=== PATIENT | male | born 1960 | race Caucasian/White ===

== ENCOUNTER → 2018-01-25 01:45 | Outpatient (CLI) | payer MEDICAID, SELFPAY ==
[2018-01-25 13:07] LABS: Abs Immature Grans 0.02 k/cumm (0.0-0.09); Absolute Basophil Count 0.02 k/cumm (0.0-0.2); Absolute Eosinophil Count 0.13 k/cumm (0.0-0.7); Absolute Lymphocyte Count 2.23 k/cumm (1.2-3.4); Absolute Neutrophil Count 8.04 k/cumm (1.2-6.7); Basophils % 0.2; Eosinophils % 1.1; HCT 39.4 % (40.0-50.0); HGB 13.1 g/dL (13.5-17.5); Immature Grans % 0.2; Lymphocytes % 19.5; Mean Corp. HGB Concentration 33.2 g/dL (32.0-36.0); Mean Corpuscular Hemoglobin 33.8 pg (27.0-33.0); Mean Corpuscular Volume 101.5 fL (80-95); Mean Platelet Volume 10.2 fL (8.0-11.0); Monocytes % 8.7; Neutrophils % 70.3; Platelet Count 184 x1000/uL (130-400); RBC 3.88 m/cumm (4.50-6.00); RBC Distribution Width 13.7 % (11.8-14.1); White Blood Cell Count 11.44 k/cumm (4.4-10.8)
[2018-01-25 13:53] LABS: ALT 25 U/L (12-78); AST 17 U/L (15-37); Albumin 3.8 g/dL (3.4-5.0); Alkaline Phosphatase 79 U/L (46-116); Anion Gap 9.5 mmol/L (3-11); BUN 16 mg/dL (7-18); Bilirubin, Total 0.7 mg/dL (0.2-1.0); CO2 27.5 mmol/L (21.0-32.0); CREATININE 0.83 mg/dL (0.70-1.30); Calcium 8.6 mg/dL (8.5-10.1); Chloride 102 mmol/L (98-107); Cholesterol 163 mg/dL (50-200); Glucose 84 mg/dL (70-100); HDL Cholesterol 53 mg/dL (40-60); LDL CHOLESTEROL 102 mg/dL (<100); Potassium 4.2 mmol/L (3.5-5.1); Sodium 139 mmol/L (136-145); Total Protein 7.2 g/dL (6.4-8.2); Triglyceride 29 mg/dL (30-150)
== END ==
PROVIDERS: PCP Family Medicine; Visit Provider Family Medicine
DX: J44.9 Chronic obstructive pulmonary disease, unspecified (principal); Z13.220 Encounter for screening for lipoid disorders
CPT/HCPCS: 36415; 80053; 80061; 83721; 85025

== ENCOUNTER 2018-05-30 14:45 | Outpatient (CLI) | payer MEDICAID, SELFPAY ==
[2018-05-30 15:19] LABS: Absolute Basophil Count 0.04 k/cumm (0.0-0.2); Absolute Eosinophil Count 0.24 k/cumm (0.0-0.7); Absolute Lymphocyte Count 2.18 k/cumm (1.2-3.4); Absolute Monocyte Count 1.13 k/cumm (0.11-0.7); Basophils % 0.3; Eosinophils % 1.9; HGB 13.4 g/dL (13.5-17.5); Immature Grans % 0.8; Lymphocytes % 17.3; Mean Corp. HGB Concentration 32.7 g/dL (32.0-36.0); Mean Corpuscular Hemoglobin 32.3 pg (27.0-33.0); Mean Corpuscular Volume 98.8 fL (80-95); Mean Platelet Volume 9.4 fL (8.0-11.0); Neutrophils % 70.7; Platelet Count 276 x1000/uL (130-400); RBC 4.15 m/cumm (4.50-6.00); RBC Distribution Width 13.9 % (11.8-14.1); White Blood Cell Count 12.59 k/cumm (4.4-10.8)
[2018-05-30 16:40] LABS: Anion Gap 11.8 mmol/L (3-11); BUN 12 mg/dL (7-18); CO2 29.2 mmol/L (21.0-32.0); CREATININE 0.91 mg/dL (0.70-1.30); Calcium 9.2 mg/dL (8.5-10.1); Chloride 99 mmol/L (98-107); Glucose 86 mg/dL (70-100); Sodium 140 mmol/L (136-145)
[2018-05-30 16:45] LABS: D-Dimer 554 ng/mlFEU (<500)
== END 2018-05-30 15:05 ==
PROVIDERS: PCP Family Medicine; Visit Provider Family Medicine
DX: R06.00 Dyspnea, unspecified (principal)
CPT/HCPCS: 36415; 80048; 85025; 85379

== ENCOUNTER 2018-10-30 07:00 | Outpatient (CLI) | payer MEDICAID, SELFPAY ==
--- NOTE | 2018-10-30 10:23 | DI.RAD_ITS ---
SYMPTOM/DIAGNOSIS: ABD PAIN, ABD MASS, DYSPHAGIA, UNINTENTIONAL WT LOSS, R10.9,R19.00,R13.10 PA AND LATERAL CHEST: The lungs appear hyperinflated but clear. Cardiac size is within normal limits. No pleural effusion is seen. CONCLUSION: No evidence of acute disease.
[2018-10-30 11:02] LABS: HCT 26.9 % (40.0-50.0); HGB 8.5 g/dL (13.5-17.5); Mean Corp. HGB Concentration 31.6 g/dL (32.0-36.0); Mean Corpuscular Hemoglobin 29.4 pg (27.0-33.0); Mean Corpuscular Volume 93.1 fL (80-95); Mean Platelet Volume 9.8 fL (8.0-11.0); Platelet Count 404 x1000/uL (130-400); RBC 2.89 m/cumm (4.50-6.00); RBC Distribution Width 16.3 % (11.8-14.1); White Blood Cell Count 17.55 k/cumm (4.4-10.8)
[2018-10-30 11:03] LABS: Bilirubin Small (Negative); Blood Negative (Negative); Clarity Clear; Glucose Negative (Negative); Ketones Negative (Negative); Leukocyte Esterase Negative (Negative); Nitrite Negative (Negative)
[2018-10-30 11:21] LABS: Absolute Monocyte Count 1.93 k/cumm (0.11-0.7); Absolute Neutrophil Count 14.57 k/cumm (1.2-6.7); Anisocytosis 1+; Diff Comment Manual Differential; Hypochromasia 1+; Polychromasia Present
[2018-10-30 11:22] LABS: Poikilocytes 1+
[2018-10-30 11:35] LABS: ALT 56 U/L (12-78); AST 153 U/L (15-37); Albumin 2.6 g/dL (3.4-5.0); Anion Gap 7.8 mmol/L (3-11); BUN 14 mg/dL (7-18); Bilirubin, Total 0.8 mg/dL (0.2-1.0); CO2 28.2 mmol/L (21.0-32.0); CREATININE 0.81 mg/dL (0.70-1.30); Calcium 8.7 mg/dL (8.5-10.1); Chloride 99 mmol/L (98-107); Glucose 116 mg/dL (70-100); Potassium 4.1 mmol/L (3.5-5.1); Sodium 135 mmol/L (136-145); Total Protein 6.8 g/dL (6.4-8.2)
[2018-10-30 11:40] LABS: Alkaline Phosphatase 1069 U/L (46-116)
[2018-10-30 11:46] LABS: Bacteria Moderate HPF (Negative); Crystals Negative HPF (Negative); Epithelial Cells Negative HPF (Negative); Other Cells Rare Renal (Negative); RBC Negative (0-2)
[2018-10-30 11:47] LABS: Casts 0-2 Hyaline LPF (Negative); Mucus Heavy (Negative)
[2018-10-30 11:48] LABS: C & S Indicated? No
== END 2018-10-30 07:20 ==
PROVIDERS: PCP Family Medicine; Visit Provider Family Medicine
DX: J44.9 Chronic obstructive pulmonary disease, unspecified (principal); R10.9 Unspecified abdominal pain; R13.10 Dysphagia, unspecified; R19.00 Intra-abdominal and pelvic swelling, mass and lump, unspecified site; R63.4 Abnormal weight loss
CPT/HCPCS: 80053; 71046; 81003; 81015; 82565; 85025

== ENCOUNTER 2018-11-01 09:25 | Outpatient (CLI) | payer MEDICAID, SELFPAY ==
--- NOTE | 2018-11-01 09:28 | DI.CT_ITS ---
SYMPTOMS/DIAGNOSIS: ABD PAIN, UNINTENTIONAL WEIGHT LOSS, R10.9, R19.00 CT OF THE ABDOMEN AND PELVIS: There are no prior comparison exams. Images were performed from the lung bases through the ischial tuberosities after IV and oral contrast. The patient noted difficulty swallowing the barium. Barium is seen in the stomach through the distal small bowel. There is a mass at the distal esophagus and fundus of the stomach measuring approximately 6 x 4 x 7 cm. There is severe narrowing of the distal esophagus. There is no small bowel or colonic dilatation. There are multiple large liver metastases, enlarging the liver extending across the midline, deviating the stomach as well as extending inferiorly into the pelvis. There is ascites seen around the liver as well as in the pelvis. No adenopathy is identified. The lung bases are clear. The heart size is normal. The spleen, adrenals and pancreas are unremarkable. There is a nonobstructing stone in the mid left kidney and a small left renal cyst. The right kidney is unremarkable. The prostate is normal in size and shows some calcification. The bladder is unremarkable. No suspicious bony abnormalities are identified. IMPRESSION: Mass of the distal esophagus and/or stomach, measuring approximately 6 x 4 x 7 cm. Enlarged liver with multipe metastases and ascites are present.
[2018-11-01] MEDS: Omnipaque 350 MG/ML 50 ML BTL IV (09:44)
[2018-11-01] MEDS: Omnipaque 350 MG/ML 100 ML BTL IJ (11:28)
== END 2018-11-01 09:45 ==
PROVIDERS: PCP Family Medicine; Visit Provider Family Medicine
DX: R10.9 Unspecified abdominal pain (principal); R19.00 Intra-abdominal and pelvic swelling, mass and lump, unspecified site; R63.4 Abnormal weight loss; D37.8 Neoplasm of uncertain behavior of other specified digestive organs; C78.7 Secondary malignant neoplasm of liver and intrahepatic bile duct; R18.8 Other ascites
CPT/HCPCS: 74177; J3490; Q9967

== ENCOUNTER 2018-11-11 10:00 | Inpatient (IN) | payer OTHER, SELFPAY ==
[2018-11-11] VITALS (8 sets, daily range): BP systolic 78–208; BP diastolic 45–172; PULSE 56–120; RESP 25–33; TEMP 30.4–36; O2SAT 87–94
--- NOTE | 2018-11-11 10:06 | DI.COMBO_ITS ---
SYMPTOM/DIAGNOSIS: ALTERED MENTAL STATUS, H/O CA NONCONTRAST HEAD CT: No acute intracranial hemorrhage, infarct, midline shift or mass effect is identified. The ventricles are intact. The basilar cisterns are patent. The visualized paranasal sinuses are clear. The mastoid air cells are well pneumatized. IMPRESSION: No acute intracranial process. PA AND LATERAL CHEST: Comparison is made with 10/30/18. Heart size and pulmonary vasculature are within normal limits. No infiltrates, effusions or pneumothoraces are identified. Degenerative changes are seen in the spine. There are again seen post surgical changes of resection of the distal right clavicle. Calcifications are again seen in the region of the right axilla. These are unchanged. IMPRESSION: No acute pulmonary process.
[2018-11-11] MEDS: Normal Saline 1,000 ML 1000 ML IV ×2 (10:19→12:38)
--- NOTE | 2018-11-11 10:26 | ED.GENADUL_ITS ---
Discharge Plan Discharge Details Chief Complaint: AMS/LOC Clinical Impression: Admission for hospice care, Liver metastases, Adult failure to thrive, Rhabdomyolysis, Admission for end of life care Admit Date/Time: 11/11/18 11:57 Admit Provider: Mimi Gardner Attending Provider: Mimi Gardner Primary Care Provider: Cuauhtemoc Kraus ED Provider: Román Erazo Medical Decision Making Is a 58-year-old male who is currently on hospice who has known cancer with metastases or gnosis. He was found poorly responsive by his friends, last known well was greater than 24 hours ago. On initial EMS arrival his blood glucose level was 32, he was given a bolus of D10. 250 mL total. Upon arrival to the ER his sugar level was 110. Initial exam demonstrated a GCS of 11, gag reflex intact. CODE STATUS is DNR/DNI. Physical exam demonstrates notably dry mucous membranes. A thin cachectic appearing male, no signs of significant trauma. Differential included severe pathology secondary to malignancy, rhabdomyolysis, dehydration, versus multiple other metabolic derangements from his cancer. Rehydration was started, laboratory work-up has returned and demonstrates notable white count of 23, hemoglobin of 5 which is significantly decreased from normal. 7% bands, elevated INR of 2.3 in spite of no anticoagulants. Notable acidosis at 7.11 with a PCO2 of 33, suggesting a metabolic acidosis. Bicarb is 12, potassium is 5.7, creatinine is 2.46, CPK is 3700, multiple abnormalities. The patient did show some mental status improvement with hydration. We did contact Dr. Sloan for further direction in regards to the patient's wishes as he was unable to clearly articulate those at this time. Dr. Sloan made it clear that he is on hospice, and states that the patient's request was to remain comfortable during this period. She has asked that we hold any ad ditional work-up, start a morphine drip at 20 mg/h with 10 mg boluses every 15 minutes as needed. She would then be assuming care. She has asked that we place bridging orders to get him to the floor to make sure that he has kept comfortable. Patient will be transferred to the care of Dr. Gutiérrez. I have extensively reviewed the treatment plan with the patient. I have addressed all patient concerns at this time. I have also discussed the plan with the admitting physician and they agree with the current assessment and plan and have agreed to assume responsibility for the patient. All parties demonstrate verbal understanding and agreement with our assessment and plan at this time. EKG 10: 10 Rate 65, QTc 472, QRS 102, machine is read as atrial flutter or fibrillation however my interpretation is sinus rhythm with notable artifact. Lead II shows clear P waves throughout. No significant ST elevations or depressions, severe artifact throughout secondary to the patient's current mental status. FINDINGS: Lungs: Emphysematous change and mild interstitial prominence. Pleural space: No pleural effusion. Heart/Mediastinum: Normal configuration of the heart. Bones/joints: Surgical resection of the distal right clavicle. Degenerative change. Other findings: Calcified right axillary lymph nodes. When correlating with the previous study, no significant interval changes are present. IMPRESSION: Stable appearance of the chest, not significantly changed from 10/30/2018 . Dictated and Authenticated by: Ad Mcmanus MD. FINDINGS: Brain: Mild symmetric prominence of the cortical sulci relative to the stated patient age. Normal graywhite matter differentiation. No acute cortical infarct, mass effect, or intracranial hemorrhage. Ventricles: Normal configuration of the ventricles. Bones/joints: No acute calvarial pathology. Sinuses: No sinus fluid. Mastoid air cells: No mastoid effusion. Soft tissues: Unremarkable soft tissues. Vasculature: Vascular calcification. IMPRESSION: No acute intracranial pathology HPI General Date/Time Provider Initiated Documentation: 11/11/18 10:05 . HPI Narrative: This is a 58-year-old male with a past medical history of cancer and metastases, who is currently on hospice presents today by EMS for altered mental status. Patient is a poor historian. Per EMS, a friend went to check on the patient, it had been a few days since he had last been seen. On their arrival they found him on the floor,obtunded and altered. Accu-Chek was 32, he was given a 250 cc bolus of D10, patient was brought to the ER, fluid was started by EMS. Patient has no complaints secondary to his altered mental status. He is moaning, and seems to be moving all 4 extremities, no other modifying factors. History is limited by current physical state. Review of records do indicate that he is seeing Dr. Gutiérrez and has been put on hospice by her. Her records it does appear that he also does have a history of orthotics abuse however this has been transitioned during his current hospice state. He does have fentanyl patches at home. Related Data Home Medications Medication Instructions Recorded Confirmed tiotropium bromide [Spiriva with 18 mcg INHALATION DAILY #30 tab-cap 07/15/18 11/04/18 HandiHaler] budesonide-formoterol HFA 160 2 puff INHALATION BID 30 Days #1 07/19/18 11/04/18 mcg-4.5 mcg/actuation aerosol inhaler inhaler albuterol sulfate HFA 90 2 puff INHALATION q 4h PRN #8.5 gm 07/26/18 11/04/18 mcg/actuation aerosol inhaler lorazepam 1 mg tablet 1 mg PO Q4H PRN #6 tab MDD 4 11/07/18 11/07/18 methadone 5 mg tablet 5 mg PO Q6H #28 tab MDD 4 11/07/18 11/07/18 morphine concentrate 100 mg/5 mL See Rx Instructions SL Q1H PRN PRN 11/07/18 11/07/18 (20 mg/mL) oral solution #30 ml MDD 15ml oxycodone 10 mg tablet 10 mg PO TID PRN #21 tab MDD 3 11/07/18 11/07/18 methadone 5 mg/5 mL oral solution 5 mg PO Q6H #500 ml MDD 20 11/08/18 11/08/18 fentanyl 25 mcg/hr transdermal 1 patch TD Q72H #5 each MDD 50 mcg 11/09/18 patch Previous Rx's Medication Instructions Recorded tiotropium bromide [Spiriva with 18 mcg INHALATION DAILY #30 tab-cap 07/15/18 HandiHaler] budesonide-formoterol HFA 160 2 puff INHALATION BID 30 Days #1 07/19/18 mcg-4.5 mcg/actuation aerosol inhaler inhaler albuterol sulfate HFA 90 2 puff INHALATION q 4h PRN #8.5 gm 07/26/18 mcg/actuation aerosol inhaler lorazepam 1 mg tablet 1 mg PO Q4H PRN #6 tab MDD 4 11/07/18 methadone 5 mg tablet 5 mg PO Q6H #28 tab MDD 4 11/07/18 morphine concentrate 100 mg/5 mL See Rx Instructions SL Q1H PRN PRN 11/07/18 (20 mg/mL) oral solution #30 ml MDD 15ml oxycodone 10 mg tablet 10 mg PO TID PRN #21 tab MDD 3 11/07/18 methadone 5 mg/5 mL oral solution 5 mg PO Q6H #500 ml MDD 20 11/08/18 fentanyl 25 mcg/hr transdermal 1 patch TD Q72H #5 each MDD 50 mcg 11/09/18 patch Allergies Allergy/AdvReac Type Severity Reaction Status Date / Time No Known Allergies Allergy Verified 10/28/18 16:33 General Stated Complaint: AMS/LOC LATESHA: 2 Review of Systems Review of Systems All systems reviewed & are unremarkable except as noted in HPI and below PFSH Medical History Unintentional weight loss of more than 10% body weight within 6 months (Acute) Liver metastases (Acute) Gastric mass (Acute) COPD (chronic obstructive pulmonary disease) (Chronic) Family History Sister Heart disease Social History Smoking/Tobacco Use Status: Current every day Tobacco Type: cigarettes Quit status: not considering quitting Counseling given: other Substance use type: former substance user Date of last use: 11/05 - [facility] buprenophrine Counseling given: No Counseling provided: other Details: on [facility] Caregiver/Support person: Yes (sister) Household members: none Housing: house Number of Children: 0 Communication Needs: None current occupation: disabled Pets and animals: Yes Pets and animals: cat(s) What is your relationship status?: don't know Panel score (0-1 are the most socially isolated patients): 0 What type of physical activity do you participate in: none Mila/Buddhism: Church Special mila needs: No Agree to transfusion: No Additional Social history: pt unable to answer; per EMS he lives alone and friend checks on him Exam Narrative Exam Narrative: 1.Const: Thin, pale, cachectic with notable jaundice of the eyes 2.Eyes: PERRL, no conjunctival injection, and symmetrical lids. No pinpoint pupils 3.ENT: Atraumatic external nose and ears. Extremely dry MM. Neck: Symmetric, trachea midline, No thyromegaly. 4.CVS: +S1/S2, No murmurs or gallops. Peripheral pulses 2+ and equal in all extremities. Brisk capillary refill in all extremities. 5.RESP: Notably tachypneic with labored respiratory effort clear to auscultation bilaterally. No wheezes rales or rhonchi 6.GI: Soft, Nontender/Nondistended, No hepatosplenomegaly. No guarding or rebound. 7.MSK: Normocephalic/Atraumatic, Extremities w/o deformity or ttp No cyanosis or clubbing, Normal movement of all extremities 8.Skin: Warm, Dry. No rashes or lesions. 9.Neuro: GCS of E3 M2 V6, 11 total. 10.Psych: Notably altered Course Vital Signs Temperature 30.4 C L 11/11/18 10:06 Pulse 64 11/11/18 10:06 Respiratory Rate 32 H 11/11/18 10:06 Blood Pressure 139/81 11/11/18 10:06 Pulse Oximetry 87 L 11/11/18 10:06 Temperature 30.4 C L 11/11/18 10:06 Temperature Source Rectal 11/11/18 10:06 Pulse 64 11/11/18 10:06 Respiratory Rate 32 H 11/11/18 10:06 Respiratory Effort 11/11/18 10:15 Blood Pressure 139/81 11/11/18 10:06 Pulse Oximetry 87 L 11/11/18 10:06 Oxygen Delivery Method Room Air 11/11/18 10:06 Oxygen Flow Rate 0 11/11/18 10:06 Lab/Test Results Lab/Test Results: 11/11/18 10:06 Blood Blood Culture - Pending 11/11/18 10:06 Blood Blood Culture - Pending
[2018-11-11 11:00] LABS: HCO3 (Venous) 10 mmol/L (22-28); O2 Sat (Venous) 63 % (70-80); TCO2 (Venous) 11 mmol/L (22-29); pCO2 (Venous) 33 mm/Hg (34-47); pO2 (Venous) 49 mm/Hg (28-44)
[2018-11-11 11:06] LABS: Abs Immature Grans 1.77 k/cumm (0.0-0.09); Mean Corp. HGB Concentration 29.9 g/dL (32.0-36.0); Mean Corpuscular Hemoglobin 31.6 pg (27.0-33.0); Mean Corpuscular Volume 105.7 fL (80-95); Mean Platelet Volume 10.9 fL (8.0-11.0); Platelet Count 228 x1000/uL (130-400); RBC 1.58 m/cumm (4.50-6.00); RBC Distribution Width 23.4 % (11.8-14.1); White Blood Cell Count 23.63 k/cumm (4.4-10.8)
[2018-11-11 11:12] LABS: HCT 16.7 % (40.0-50.0)
[2018-11-11 11:14] LABS: Ammonia 47 umol/L (11-32)
[2018-11-11 11:15] LABS: INR 2.3 (0.9-1.1); PTT Activated 31.6 sec (21.0-31.4); Prothrombin Time 22.9 sec (9.3-11.0)
[2018-11-11 11:16] LABS: pH (Venous) 7.11 (7.32-7.43)
[2018-11-11 11:28] LABS: Albumin 2.2 g/dL (3.4-5.0); Alkaline Phosphatase 598 U/L (46-116); Anion Gap 27.4 mmol/L (3-11); BUN 76 mg/dL (7-18); Bilirubin, Total 3.4 mg/dL (0.2-1.0); CO2 12.6 mmol/L (21.0-32.0); CREATININE 2.46 mg/dL (0.70-1.30); Calcium 8.1 mg/dL (8.5-10.1); Chloride 104 mmol/L (98-107); Estimated GFR 27.35 (mL/min/1.73m2); Glucose 117 mg/dL (70-100); Lipase 335 U/L (73-393); Potassium 5.7 mmol/L (3.5-5.1); Sodium 144 mmol/L (136-145); TSH (W/Ref FT4) 7.28 uIU/mL (0.358-3.74); Total Protein 5.9 g/dL (6.4-8.2); Troponin I 0.04 ng/mL (0.00-0.06)
[2018-11-11 11:34] LABS: Absolute Lymphocyte Count 0.71 k/cumm (1.2-3.4); Absolute Monocyte Count 2.13 k/cumm (0.11-0.7); Absolute Neutrophil Count 19.14 k/cumm (1.2-6.7)
[2018-11-11 11:35] LABS: Absolute Eosinophil Count 0.24 k/cumm (0.0-0.7); Anisocytosis 3+; Basophilic Stippling Present; Diff Comment Manual Differential; Hypochromasia 3+; Macrocytosis 2+; Nucleated RBC 1 /100WBC; Polychromasia Present
[2018-11-11 11:39] LABS: AST 1230 U/L (15-37); Creatine Kinase 3726 U/L (39-308); ETHANOL BLOOD < 3.0 mg/dL (<3)
[2018-11-11 12:37] LABS: FREE T4 0.67 ng/dL (0.76-1.46)
[2018-11-11] MEDS: MORPHine 10 MG/ML VIAL IVP (12:38)
--- NOTE | 2018-11-11 12:44 | DI.VRAD_ITS ---
EXAM: CT Head Without Contrast EXAM DATE/TIME: 11/11/2018 10:08 AM CLINICAL HISTORY: 58 years old, male; Signs and symptoms; Other: Altered, cancer HX TECHNIQUE: Imaging protocol: Axial computed tomography images of the head without contrast. Coronal and sagittal reformatted images were created and reviewed. Radiation optimization: All CT scans at this facility use at least one of these dose optimization techniques: automated exposure control; mA and/or kV adjustment per patient size (includes targeted exams where dose is matched to clinical indication); or iterative reconstruction. COMPARISON: No relevant prior studies available. FINDINGS: Brain: Mild symmetric prominence of the cortical sulci relative to the stated patient age. Normal zelaya-white matter differentiation. No acute cortical infarct, mass effect, or intracranial hemorrhage. Ventricles: Normal configuration of the ventricles. Bones/joints: No acute calvarial pathology. Sinuses: No sinus fluid. Mastoid air cells: No mastoid effusion. Soft tissues: Unremarkable soft tissues. Vasculature: Vascular calcification. IMPRESSION: No acute intracranial pathology. Dictated and Authenticated by: Ad Mcmanus MD. Ordering:RIO [place] MD
--- NOTE | 2018-11-11 12:46 | DI.VRAD_ITS ---
EXAM: XR Chest, 2 Views EXAM DATE/TIME: 11/11/2018 10:08 AM CLINICAL HISTORY: 58 years old, male; Signs and symptoms; Other: Altered, HX of cancer TECHNIQUE: Imaging protocol: XR of the chest, 2 views. COMPARISON: CR XR CHEST 2V PA LATERAL 10/30/2018 10:32 AM FINDINGS: Lungs: Emphysematous change and mild interstitial prominence. Pleural space: No pleural effusion. Heart/Mediastinum: Normal configuration of the heart. Bones/joints: Surgical resection of the distal right clavicle. Degenerative change. Other findings: Calcified right axillary lymph nodes. When correlating with the previous study, no significant interval changes are present. IMPRESSION: Stable appearance of the chest, not significantly changed from 10/30/2018 . Dictated and Authenticated by: Ad Mcmanus MD. Ordering:RIO [place] MD
[2018-11-11 13:03] LABS: ALT 190 U/L (12-78)
--- NOTE | 2018-11-11 14:03 | CHAPLAIN ---
I was called to the ER to visit Colin. His nurse Louise said he agreed to a electrical machinist visit for prayer. Colin is a hospice patient, being admitted to Med/Surg. Francis asked that we pray later. His friend (Chet?) is with him. Chet said that Colin's sister is on her way over from [place], [place]. Chet said he has known Colin for a lot time, and about a month ago Colin was having a hard time swallowing, and has lost about 30 pounds during the month. Colin appears to be very weak, and it is sometime difficult to tell what he is saying because he can not speak up clearly. I will continue to check in with Colin today.
--- NOTE | 2018-11-11 14:38 | CHAPLAIN ---
Colin's sister is here. She asked if I could call the priests, and Colin agreed to have them visit later, he said. I left a message on both Fr. Dong and Fr. Cadena' extensions at the [facility] and told Colin's sister that as well. I am also available to come back in and I let Colin and his sister know that, and let them know how to reach me. I checked in with Colin's nurse, Maria Luisa Kumar RN and Floor Surfacer Jaci Sena to update them as well.
--- NOTE | 2018-11-11 15:54 | HOSPCON_ITS ---
Date of service: 11/11/18 Time of Service: 15:53 [facility] Social History Smoking/Tobacco Use Status: Current every day Tobacco Type: cigarettes Additional Social history: pt unable to answer; per EMS he lives alone and friend checks on him Results Last Vital Signs Temp 93.9 F L 11/11/18 12:55 Pulse 70 11/11/18 12:55 Resp 25 H 11/11/18 12:55 BP 78/45 L 11/11/18 12:55 Pulse Ox 94 L 11/11/18 12:55 Labs : 11/11/18 10:50 11/11/18 10:50 Laboratory Results - last 24 hr 11/11/18 11/11/18 11/11/18 10:50 10:50 10:50 WBC RBC Hgb Hct MCV MCH MCHC RDW Plt Count MPV Immature Gran % Neutrophils % Band Neutrophils % Lymphocytes % Monocytes % Eosinophils % Basophils % Metamyelocytes % Myelocytes % Absolute Neutrophils Absolute Lymphocytes Absolute Monocytes Absolute Eosinophils Absolute Basophils Nucleated RBCs Differential Comment RBC Morphology Polychromasia Hypochromasia Basophilic Stippling Anisocytosis Macrocytosis PT INR APTT VBG pH VBG pCO2 VBG pO2 VBG HCO3 VBG Total CO2 VBG O2 Saturation VBG Base Excess Sodium 144 Potassium 5.7 H Chloride 104 Carbon Dioxide 12.6 L Anion Gap 27.4 H BUN 76 H Creatinine 2.46 H Estimated GFR/1.73 m2 27.35 Glucose 117 H Lactate 20.0 H Calcium 8.1 L Total Bilirubin 3.4 H AST 1230 H ALT 190 H Alkaline Phosphatase 598 H Ammonia 47 H Creatine Kinase 3726 H Troponin I 0.04 Total Protein 5.9 L Albumin 2.2 L Lipase 335 TSH 7.28 H Free T4 0.67 L Ethyl Alcohol < 3.0 11/11/18 11/11/18 11/11/18 10:50 10:50 10:50 WBC 23.63 H RBC 1.58 L Hgb 5.0 L* Hct 16.7 L* MCV 105.7 H MCH 31.6 MCHC 29.9 L RDW 23.4 H Plt Count 228 D MPV 10.9 Immature Gran % See Differential Neutrophils % 74.0 Band Neutrophils % 7.0 Lymphocytes % 3.0 Monocytes % 9.0 Eosinophils % 1.0 Basophils % 0.0 Metamyelocytes % 1.0 Myelocytes % 4.0 Absolute Neutrophils 19.14 H Absolute Lymphocytes 0.71 L Absolute Monocytes 2.13 H Absolute Eosinophils 0.24 Absolute Basophils 0.00 Nucleated RBCs 1 Differential Comment Manual differential RBC Morphology See below Polychromasia Present Hypochromasia 3+ Basophilic Stippling Present Anisocytosis 3+ Macrocytosis 2+ PT 22.9 H INR 2.3 H APTT 31.6 H VBG pH 7.11 L VBG pCO2 33 L VBG pO2 49 H VBG HCO3 10 L VBG Total CO2 11 L VBG O2 Saturation 63 L VBG Base Excess Sodium Potassium Chloride Carbon Dioxide Anion Gap BUN Creatinine Estimated GFR/1.73 m2 Glucose Lactate Calcium Total Bilirubin AST ALT Alkaline Phosphatase Ammonia Creatine Kinase Troponin I Total Protein Albumin Lipase TSH Free T4 Ethyl Alcohol
--- NOTE | 2018-11-11 16:00 | NUR.NOTE ---
Nursing Note: 11/11/18 @ 1405- Found a fentanyl patch 25mcg on LUE. Called ER to verify patch. They said they had removed patch and did not see that one. Told me to remove the last patch did look for more since the patient stated he had 3 patches. No other patches found.
[2018-11-11] MEDS: Scopolamine 1 MG/3 DAYS PATCH TD (16:23)
[2018-11-11] MEDS: Normal Saline Flush 10 ML SYR IVP ×5 (16:26→22:57)
[2018-11-11] MEDS: LORazepam 2 MG/ML VIAL IV/SC ×3 (16:27→20:44)
--- NOTE | 2018-11-11 18:45 | W.PM.HP.N ---
Date of service: 11/11/18 Time of Service: 15:45 Assessment and Plan (1) Liver metastases: Current visit: Yes Status: Acute (2) Gastric mass: Current visit: Yes Status: Acute (3) COPD (chronic obstructive pulmonary disease): Current visit: Yes Status: Chronic (4) Mental status change resolved: Current visit: Yes Status: Resolved (5) Admission for hospice care: Current visit: Yes Status: Acute 58 year old male with known advance gastric cancer with metastasis, ascites, profound anemia and poor pain control admitted to [facility] for symptom mamangement. Asked Dr Erazo to start a morphine drip at basal 20mg/hr and bolus 10mg Q 10 minutes. Due to high anticipated needs of this patient may need to transition to hydromorphone if his pain is not well controlled. He is unable to eat due to his gastric mass. He would like ice chips. For anxiety he will have both scheduled and PRN lorazepam. Comfort measures only. No IV hydration, antibiotics or transfusions. Regarding oxygen, will checkhis sats off oxygen and see if he is stable. His sister understands that oxygen may not help and may worsen his mental status as he has COPD and may be a retainer Per his wishes when completed a [facility]ST form on 11/06: DNR/DNI I am covering Colin acosta, but in the AM, Maria Luisa Riggs MD will be assuming care COmfort measures are in place. History of Present Illness Chief Complaint: Hospice admission for symptom management Consults Consult date: 11/11/18 Narrative: I met Colin for the first time 11/06/18 when I saw him for a Pallative Care Consult. After our discussion he decided to go on Hospice Care and enrolled with Hospice 11/08/18. Pain management was difficult. His past medical history is significant for opioid addiction, on [facility] program; COPD; weight loss of 30 # which is 1/3 of his body weight; new GI tumor nearly obstructing his GI tract with metastasis to multiple areas in the liver and ascites. On Hospice he transitioned quickly from oral methadone tabs to liquid then to a fentanyl patch. Today he was found down by a friend who contacted 911 and was brought to [facility] ER. Not realizing he was on Hospice, multiple labs and imaging was done. During his ER visit I was contacted due to my recent contact with Colin and discussion of [facility]ST, goals of care, etc. I said he was on Hospice, further work up and interventions were stopped. I admitted him to [facility] floor for symptom management. Review of Systems Review of Systems Unobtainable due to Constitutional Reports anorexia, Reports chills, Reports daytime sleepiness, Reports difficulty sleeping, Reports fatigue, Reports lethargy, Reports poor appetite, Reports weakness and Reports weight loss ENT Reports change in voice, Reports dysphagia, Reports dizziness and Reports sore throat Cardiovascular Reports dyspnea, Reports dyspnea on exertion and Reports orthopnea Respiratory Reports pain on inspiration, Reports dyspnea, Reports dyspnea on exertion and Reports wheezing Gastrointestinal Reports change in bowel habits, Reports dysphagia and Reports early satiety Genitourinary Reports system reviewed and no additional complaints, except as docu Neurologic Reports behavioral changes, Reports dizziness and Reports weakness Psychiatric Reports abnormal sleep pattern, Reports behavioral changes and Reports depression (understands he id dying) Endocrine Reports fatigue Allergic/Immunologic Reports wheezing PFSH Medical History Unintentional weight loss of more than 10% body weight within 6 months (Acute) Liver metastases (Acute) Gastric mass (Acute) COPD (chronic obstructive pulmonary disease) (Chronic) Family History Sister Heart disease Social History Smoking/Tobacco Use Status: Current every day Tobacco Type: cigarettes Quit status: not considering quitting Counseling given: other Substance use type: former substance user Date of last use: 11/05 - [facility] buprenophrine Counseling given: No Counseling provided: other Details: on [facility] Caregiver/Support person: Yes (sister) Household members: none Housing: house Number of Children: 0 Communication Needs: None current occupation: disabled Pets and animals: Yes Pets and animals: cat(s) What is your relationship status?: don't know Panel score (0-1 are the most socially isolated patients): 0 What type of physical activity do you participate in: none Mila/Jainism: [employer] Special mila needs: No Agree to transfusion: No Additional Social history: pt unable to answer; per EMS he lives alone and friend checks on him Meds Home Medications Medication Instructions Recorded Confirmed Type tiotropium bromide [Spiriva with 18 mcg INHALATION DAILY #30 tab-cap 07/15/18 11/04/18 Rx HandiHaler] budesonide-formoterol HFA 160 2 puff INHALATION BID 30 Days #1 07/19/18 11/04/18 Rx mcg-4.5 mcg/actuation aerosol inhaler inhaler albuterol sulfate HFA 90 2 puff INHALATION q 4h PRN #8.5 gm 07/26/18 11/04/18 Rx mcg/actuation aerosol inhaler lorazepam 1 mg tablet 1 mg PO Q4H PRN #6 tab MDD 4 11/07/18 11/07/18 Rx methadone 5 mg tablet 5 mg PO Q6H #28 tab MDD 4 11/07/18 11/07/18 Rx morphine concentrate 100 mg/5 mL See Rx Instructions SL Q1H PRN PRN 11/07/18 11/07/18 Rx (20 mg/mL) oral solution #30 ml MDD 15ml oxycodone 10 mg tablet 10 mg PO TID PRN #21 tab MDD 3 11/07/18 11/07/18 Rx methadone 5 mg/5 mL oral solution 5 mg PO Q6H #500 ml MDD 20 11/08/18 11/08/18 Rx fentanyl 25 mcg/hr transdermal 1 patch TD Q72H #5 each MDD 50 mcg 11/09/18 Rx patch Allergies Allergy/AdvReac Type Severity Reaction Status Date / Time No Known Allergies Allergy Verified 10/28/18 16:33 Exam Narrative Exam Narrative: Colin is lying in bed. Occassionally he opens his eyes and speaks. He is extrememly pale with large pupils. He states often that he is uncomfortable. Family members say he was moaning. Const General: in distress, anxious, disheveled and frail appearing Nutritional Appearance: cachectic Orientation: awake and oriented x3 Limitations: other limitations [facility] Ears: hearing grossly normal bilaterally General nose exam: external nose normal Mouth: oral mucosa abnormal Eyes Alignment and Position: alignment normal Eyelids: eyelids normal Conjunctivae: conjunctivae normal Sclera: sclerae normal Cornea: corneas normal Pupils: PERRL and dilated (large moreso than dialated) bilaterally Chest Other: extemely thin Resp Effort & Inspection: abnormal respiratory pattern and decreased respiratory effort Auscultation: diminished lung sounds Cardio Rate: regular rate Rhythm: regular rhythm GI Inspection: distended Palpation: firm, guarding, hepatomegaly and ascites Auscultation: abnormal bowel sounds Rectal Exam: deferred Neuro General: oriented x3 Cognition: abnormal cognition Speech: speech normal Results atient Name: TAZ SAVAGE #: [id number]: ER Ordering Provider: : REG ER Primary Care Provider: Cuauhtemoc Kraus Date of Exam: 11/11/18Sex: M : 2Age: 58 Exam(s) EXAM: CT Head Without Contrast EXAM DATE/TIME: 11/11/2018 10:08 AM CLINICAL HISTORY: 58 years old, male; Signs and symptoms; Other: Altered, cancer HX TECHNIQUE: Imaging protocol: Axial computed tomography images of the head without contrast. Coronal and sagittal reformatted images were created and reviewed. Radiation optimization: All CT scans at this facility use at least one of these dose optimization techniques: automated exposure control; mA and/or kV adjustment per patient size (includes targeted exams where dose is matched to clinical indication); or iterative reconstruction. COMPARISON: No relevant prior studies available. FINDINGS: Brain: Mild symmetric prominence of the cortical sulci relative to the stated patient age. Normal zelaya-white matter differentiation. No acute cortical infarct, mass effect, or intracranial hemorrhage. Ventricles: Normal configuration of the ventricles. Bones/joints: No acute calvarial pathology. Sinuses: No sinus fluid. Mastoid air cells: No mastoid effusion. Soft tissues: Unremarkable soft tissues. Vasculature: Vascular calcification. IMPRESSION: No acute intracranial pathology. Dictated and Authenticated by: Ad Mcmanus MD. Ordering:RIO [place] MD Labs : 11/11/18 10:50 11/11/18 10:50 Laboratory Results - last 24 hr 11/11/18 11/11/18 11/11/18 10:50 10:50 10:50 WBC RBC Hgb Hct MCV MCH MCHC RDW Plt Count MPV Immature Gran % Neutrophils % Band Neutrophils % Lymphocytes % Monocytes % Eosinophils % Basophils % Metamyelocytes % Myelocytes % Absolute Neutrophils Absolute Lymphocytes Absolute Monocytes Absolute Eosinophils Absolute Basophils Nucleated RBCs Differential Comment RBC Morphology Polychromasia Hypochromasia Basophilic Stippling Anisocytosis Macrocytosis PT INR APTT VBG pH VBG pCO2 VBG pO2 VBG HCO3 VBG Total CO2 VBG O2 Saturation VBG Base Excess Sodium 144 Potassium 5.7 H Chloride 104 Carbon Dioxide 12.6 L Anion Gap 27.4 H BUN 76 H Creatinine 2.46 H Estimated GFR/1.73 m2 27.35 Glucose 117 H Lactate 20.0 H Calcium 8.1 L Total Bilirubin 3.4 H AST 1230 H ALT 190 H Alkaline Phosphatase 598 H Ammonia 47 H Creatine Kinase 3726 H Troponin I 0.04 Total Protein 5.9 L Albumin 2.2 L Lipase 335 TSH 7.28 H Free T4 0.67 L Ethyl Alcohol < 3.0 11/11/18 11/11/18 11/11/18 10:50 10:50 10:50 WBC 23.63 H RBC 1.58 L Hgb 5.0 L* Hct 16.7 L* MCV 105.7 H MCH 31.6 MCHC 29.9 L RDW 23.4 H Plt Count 228 D MPV 10.9 Immature Gran % See Differential Neutrophils % 74.0 Band Neutrophils % 7.0 Lymphocytes % 3.0 Monocytes % 9.0 Eosinophils % 1.0 Basophils % 0.0 Metamyelocytes % 1.0 Myelocytes % 4.0 Absolute Neutrophils 19.14 H Absolute Lymphocytes 0.71 L Absolute Monocytes 2.13 H Absolute Eosinophils 0.24 Absolute Basophils 0.00 Nucleated RBCs 1 Differential Comment Manual differential RBC Morphology See below Polychromasia Present Hypochromasia 3+ Basophilic Stippling Present Anisocytosis 3+ Macrocytosis 2+ PT 22.9 H INR 2.3 H APTT 31.6 H VBG pH 7.11 L VBG pCO2 33 L VBG pO2 49 H VBG HCO3 10 L VBG Total CO2 11 L VBG O2 Saturation 63 L VBG Base Excess Sodium Potassium Chloride Carbon Dioxide Anion Gap BUN Creatinine Estimated GFR/1.73 m2 Glucose Lactate Calcium Total Bilirubin AST ALT Alkaline Phosphatase Ammonia Creatine Kinase Troponin I Total Protein Albumin Lipase TSH Free T4 Ethyl Alcohol Last Vital Signs Temp 93.9 F L 11/11/18 12:55 Pulse 70 11/11/18 12:55 Resp 25 H 11/11/18 12:55 BP 78/45 L 11/11/18 12:55 Pulse Ox 94 L 11/11/18 12:55
--- NOTE | 2018-11-11 19:20 | HPE_ITS ---
Date of service: 11/11/18 Time of Service: 15:45 Assessment and Plan (1) Liver metastases: Current visit: Yes Status: Acute (2) Gastric mass: Current visit: Yes Status: Acute (3) COPD (chronic obstructive pulmonary disease): Current visit: Yes Status: Chronic (4) Mental status change resolved: Current visit: Yes Status: Resolved (5) Admission for hospice care: Current visit: Yes Status: Acute 58 year old male with known advance gastric cancer with metastasis, ascit es, profound anemia and poor pain control admitted to [facility] for symptom mamangement. Asked Dr Erazo to start a morphine drip at basal 20mg/hr and bolus 10mg Q 10 minutes. Due to high anticipated needs of this patient may need to transition to hydromorphone if his pain is not well controlled. He is unable to eat due to his gastric mass. He would like ice chips. For anxiety he will have both scheduled and PRN lorazepam. Comfort measures only. No IV hydration, antibiotics or transfusions. Regarding oxygen, will checkhis sats off oxygen and see if he is stable. His sister understands that oxygen may not help and may worsen his mental status as he has COPD and may be a retainer Per his wishes when completed a [facility] form on 11/06: DNR/DNI I am covering Colin acosta, but in the AM, Maria Luisa Riggs MD will be assuming care COmfort measures are in place. History of Present Illness Chief Complaint: Hospice admission for symptom management Consults Consult date: 11/11/18 Narrative: I met Colin for the first time 11/06/18 when I saw him for a Pallative Care Consult. After our discussion he decided to go on Hospice Care and enrolled with Hospice 11/08/18. Pain management was difficult. His past medical history is significant for opioid addiction, on [facility] program; COPD; weight loss of 30 # which is 1/3 of his body weight; new GI tumor nearly obstructing his GI tract with metastasis to multiple areas in the liver and ascites. On Hospice he transitioned quickly from oral methadone tabs to liquid then to a fentanyl patch. Today he was found down by a friend who contacted 911 and was brought to [facility] ER. Not realizing he was on Hospice, multiple labs and imaging was done. During his ER visit I was contacted due to my recent contact with Colin and discussion of [facility]ST, goals of care, etc. I said he was on Hospice, further work up and interventions were stopped. I admitted him to [facility] floor for symptom management. Review of Systems Review of Systems Unobtainable due to Constitutional Reports anorexia, Reports chills, Reports daytime sleepiness, Reports difficulty sleeping, Reports fatigue, Reports lethargy, Reports poor appetite, Reports weakness and Reports weight loss ENT Reports change in voice, Reports dysphagia, Reports dizziness and Reports sore throat Cardiovascular Reports dyspnea, Reports dyspnea on exertion and Reports orthopnea Respiratory Reports pain on inspiration, Reports dyspnea, Reports dyspnea on exertion and Reports wheezing Gastrointestinal Reports change in bowel habits, Reports dysphagia and Reports early satiety Genitourinary Reports system reviewed and no additional complaints, except as docu Neurologic Reports behavioral changes, Reports dizziness and Reports weakness Psychiatric Reports abnormal sleep pattern, Reports behavioral changes and Reports depression (understands he id dying) Endocrine Reports fatigue Allergic/Immunologic Reports wheezing PFSH Medical History Unintentional weight loss of more than 10% body weight within 6 months (Acute) Liver metastases (Acute) Gastric mass (Acute) COPD (chronic obstructive pulmonary disease) (Chronic) Family History Sister Heart disease Social History Smoking/Tobacco Use Status: Current every day Tobacco Type: cigarettes Quit status: not considering quitting Counseling given: other Substance use type: former substance user Date of last use: 11/05 - [facility] buprenophrine Counseling given: No Counseling provided: other Details: on [facility] Caregiver/Support person: Yes (sister) Household members: none Housing: house Number of Children: 0 Communication Needs: None current occupation: disabled Pets and animals: Yes Pets and animals: cat(s) What is your relationship status?: don't know Panel score (0-1 are the most socially isolated patients): 0 What type of physical activity do you participate in: none Mila/Latter Day: [employer] Special mila needs: No Agree to transfusion: No Additional Social history: pt unable to answer; per EMS he lives alone and friend checks on him Meds Home Medications Medication Instructions Recorded Confirmed Type tiotropium bromide [Spiriva with 18 mcg INHALATION DAILY #30 tab-cap 07/15/18 11/04/18 Rx HandiHaler] budesonide-formoterol HFA 160 2 puff INHALATION BID 30 Days #1 07/19/18 11/04/18 Rx mcg-4.5 mcg/actuation aerosol inhaler inhaler albuterol sulfate HFA 90 2 puff INHALATION q 4h PRN #8.5 gm 07/26/18 11/04/18 Rx mcg/actuation aerosol inhaler lorazepam 1 mg tablet 1 mg PO Q4H PRN #6 tab MDD 4 11/07/18 11/07/18 Rx methadone 5 mg tablet 5 mg PO Q6H #28 tab MDD 4 11/07/18 11/07/18 Rx morphine concentrate 100 mg/5 mL See Rx Instructions SL Q1H PRN PRN 11/07/18 11/07/18 Rx (20 mg/mL) oral solution #30 ml MDD 15ml oxycodone 10 mg tablet 10 mg PO TID PRN #21 tab MDD 3 11/07/18 11/07/18 Rx methadone 5 mg/5 mL oral solution 5 mg PO Q6H #500 ml MDD 20 11/08/18 11/08/18 Rx fentanyl 25 mcg/hr transdermal 1 patch TD Q72H #5 each MDD 50 mcg 11/09/18 Rx patch Allergies Allergy/AdvReac Type Severity Reaction Status Date / Time No Known Allergies Allergy Verified 10/28/18 16:33 Exam Narrative Exam Narrative: Colin is lying in bed. Occassionally he opens his eyes and speaks. He is extrememly pale with large pupils. He states often that he is uncomfortable. Family members say he was moaning. Const General: in distress, anxious, disheveled and frail appearing Nutritional Appearance: cachectic Orientation: awake and oriented x3 Limitations: other limitations [facility] Ears: hearing grossly normal bilaterally General nose exam: external nose normal Mouth: oral mucosa abnormal Eyes Alignment and Position: alignment normal Eyelids: eyelids normal Conjunctivae: conjunctivae normal Sclera: sclerae normal Cornea: corneas normal Pupils: PERRL and dilated (large moreso than dialated) bilaterally Chest Other: extemely thin Resp Effort & Inspection: abnormal respiratory pattern and decreased respiratory effort Auscultation: diminished lung sounds Cardio Rate: regular rate Rhythm: regular rhythm GI Inspection: distended Palpation: firm, guarding, hepatomegaly and ascites Auscultation: abnormal bowel sounds Rectal Exam: deferred Neuro General: oriented x3 Cognition: abnormal cognition Speech: speech normal Results atient Name: TAZ SAVAGE #: [id number]: ER Ordering Provider: : REG ER Primary Care Provider: Cuauhtemoc Kraus Date of Exam: 11/11/18Sex: M : 2Age: 58 Exam(s) EXAM: CT Head Without Contrast EXAM DATE/TIME: 11/11/2018 10:08 AM CLINICAL HISTORY: 58 years old, male; Signs and symptoms; Other: Altered, cancer HX TECHNIQUE: Imaging protocol: Axial computed tomography images of the head without contrast. Coronal and sagittal reformatted images were created and reviewed. Radiation optimization: All CT scans at this facility use at least one of these dose optimization techniques: automated exposure control; mA and/or kV adjustment per patient size (includes targeted exams where dose is matched to clinical indication); or iterative reconstruction. COMPARISON: No relevant prior studies available. FINDINGS: Brain: Mild symmetric prominence of the cortical sulci relative to the stated patient age. Normal zelaya-white matter differentiation. No acute cortical infarct, mass effect, or intracranial hemorrhage. Ventricles: Normal configuration of the ventricles. Bones/joints: No acute calvarial pathology. Sinuses: No sinus fluid. Mastoid air cells: No mastoid effusion. Soft tissues: Unremarkable soft tissues. Vasculature: Vascular calcification. IMPRESSION: No acute intracranial pathology. Dictated and Authenticated by: Ad Mcmanus MD. Ordering:RIO [place] MD Labs : 11/11/18 10:50 11/11/18 10:50 Laboratory Results - last 24 hr 11/11/18 11/11/18 11/11/18 10:50 10:50 10:50 WBC RBC Hgb Hct MCV MCH MCHC RDW Plt Count MPV Immature Gran % Neutrophils % Band Neutrophils % Lymphocytes % Monocytes % Eosinophils % Basophils % Metamyelocytes % Myelocytes % Absolute Neutrophils Absolute Lymphocytes Absolute Monocytes Absolute Eosinophils Absolute Basophils Nucleated RBCs Differential Comment RBC Morphology Polychromasia Hypochromasia Basophilic Stippling Anisocytosis Macrocytosis PT INR APTT VBG pH VBG pCO2 VBG pO2 VBG HCO3 VBG Total CO2 VBG O2 Saturation VBG Base Excess Sodium 144 Potassium 5.7 H Chloride 104 Carbon Dioxide 12.6 L Anion Gap 27.4 H BUN 76 H Creatinine 2.46 H Estimated GFR/1.73 m2 27.35 Glucose 117 H Lactate 20.0 H Calcium 8.1 L Total Bilirubin 3.4 H AST 1230 H ALT 190 H Alkaline Phosphatase 598 H Ammonia 47 H Creatine Kinase 3726 H Troponin I 0.04 Total Protein 5.9 L Albumin 2.2 L Lipase 335 TSH 7.28 H Free T4 0.67 L Ethyl Alcohol < 3.0 11/11/18 11/11/18 11/11/18 10:50 10:50 10:50 WBC 23.63 H RBC 1.58 L Hgb 5.0 L* Hct 16.7 L* MCV 105.7 H MCH 31.6 MCHC 29.9 L RDW 23.4 H Plt Count 228 D MPV 10.9 Immature Gran % See Differential Neutrophils % 74.0 Band Neutrophils % 7.0 Lymphocytes % 3.0 Monocytes % 9.0 Eosinophils % 1.0 Basophils % 0.0 Metamyelocytes % 1.0 Myelocytes % 4.0 Absolute Neutrophils 19.14 H Absolute Lymphocytes 0.71 L Absolute Monocytes 2.13 H Absolute Eosinophils 0.24 Absolute Basophils 0.00 Nucleated RBCs 1 Differential Comment Manual differential RBC Morphology See below Polychromasia Present Hypochromasia 3+ Basophilic Stippling Present Anisocytosis 3+ Macrocytosis 2+ PT 22.9 H INR 2.3 H APTT 31.6 H VBG pH 7.11 L VBG pCO2 33 L VBG pO2 49 H VBG HCO3 10 L VBG Total CO2 11 L VBG O2 Saturation 63 L VBG Base Excess Sodium Potassium Chloride Carbon Dioxide Anion Gap BUN Creatinine Estimated GFR/1.73 m2 Glucose Lactate Calcium Total Bilirubin AST ALT Alkaline Phosphatase Ammonia Creatine Kinase Troponin I Total Protein Albumin Lipase TSH Free T4 Ethyl Alcohol Last Vital Signs Temp 93.9 F L 11/11/18 12:55 Pulse 70 11/11/18 12:55 Resp 25 H 11/11/18 12:55 BP 78/45 L 11/11/18 12:55 Pulse Ox 94 L 11/11/18 12:55
[2018-11-11] MEDS: LORazepam 2 MG/ML VIAL 1 MG IVP ×2 (19:41→22:56)
[2018-11-12] MEDS: Normal Saline Flush 10 ML SYR IVP ×4 (02:03→12:03)
[2018-11-12] MEDS: LORazepam 2 MG/ML VIAL 1 MG IVP ×5 (02:03→14:45)
--- NOTE | 2018-11-12 06:34 | W.PM.PROGNOT ---
Date of Service Date of service: 11/12/18 Time of Service: 06:34 Assessment and Plan (1) Admission for hospice care: Current visit: Yes Status: Acute Pt is now comatose. He had yesterday to say goodbye to his family. If he awakens he does NOT want to know his prognosis. He is hours to at the most days from dying. We switched to a dilaudid pump at 8mg/hr and 2mg bolus doses. He is more comfortable by report. Continue with hospice care in the hospital setting. I expect soon. (2) Liver metastases: Current visit: Yes Status: Acute (3) Gastric mass: Current visit: Yes Status: Acute Subjective Patient reports: no new complaints and no bowel movement Interval history since last seen: Pt is comatose and appears comfortable with the change to dilaudid. Family gone for the night. Exam Narrative Exam Narrative: Lying in bed. Appears comfortable with smooth forehead. no moaning. Respirations non labored. HR - regular. Tobar in place. He did not flinch when my cool hands examined his body. Pupils reactive and are NOT pinpoint. Objective Objective Clinical Data: Abnormal lab results 11/11/18 11/11/18 11/11/18 Range/Units 10:50 10:50 10:50 WBC (4.4-10.8) k/cumm RBC (4.50-6.00) m/cumm Hgb (13.5-17.5) g/dL Hct (40.0-50.0) % MCV (80-95) fL MCHC (32.0-36.0) g/dL RDW (11.8-14.1) % Absolute Neutrophils (1.2-6.7) k/cumm Absolute Lymphocytes (1.2-3.4) k/cumm Absolute Monocytes (0.11-0.7) k/cumm PT (9.3-11.0) sec INR (0.9-1.1) APTT (21.0-31.4) sec VBG pH (7.32-7.43) VBG pCO2 (34-47) mm/Hg VBG pO2 (28-44) mm/Hg VBG HCO3 (22-28) mmol/L VBG Total CO2 (22-29) mmol/L VBG O2 Saturation (70-80) % Potassium 5.7 H (3.5-5.1) mmol/L Carbon Dioxide 12.6 L (21.0-32.0) mmol/L Anion Gap 27.4 H (3-11) mmol/L BUN 76 H (7-18) mg/dL Creatinine 2.46 H (0.70-1.30) mg/dL Glucose 117 H (70-100) mg/dL Lactate 20.0 H (0.6-1.4) mmol/l Calcium 8.1 L (8.5-10.1) mg/dL Total Bilirubin 3.4 H (0.2-1.0) mg/dL AST 1230 H (15-37) U/L ALT 190 H (12-78) U/L Alkaline Phosphatase 598 H (46-116) U/L Ammonia 47 H (11-32) umol/L Creatine Kinase 3726 H (39-308) U/L Total Protein 5.9 L (6.4-8.2) g/dL Albumin 2.2 L (3.4-5.0) g/dL TSH 7.28 H (0.358-3.74) uIU/mL Free T4 0.67 L (0.76-1.46) ng/dL 11/11/18 11/11/18 11/11/18 Range/Units 10:50 10:50 10:50 WBC 23.63 H (4.4-10.8) k/cumm RBC 1.58 L (4.50-6.00) m/cumm Hgb 5.0 L* (13.5-17.5) g/dL Hct 16.7 L* (40.0-50.0) % MCV 105.7 H (80-95) fL MCHC 29.9 L (32.0-36.0) g/dL RDW 23.4 H (11.8-14.1) % Absolute Neutrophils 19.14 H (1.2-6.7) k/cumm Absolute Lymphocytes 0.71 L (1.2-3.4) k/cumm Absolute Monocytes 2.13 H (0.11-0.7) k/cumm PT 22.9 H (9.3-11.0) sec INR 2.3 H (0.9-1.1) APTT 31.6 H (21.0-31.4) sec VBG pH 7.11 L (7.32-7.43) VBG pCO2 33 L (34-47) mm/Hg VBG pO2 49 H (28-44) mm/Hg VBG HCO3 10 L (22-28) mmol/L VBG Total CO2 11 L (22-29) mmol/L VBG O2 Saturation 63 L (70-80) % Potassium (3.5-5.1) mmol/L Carbon Dioxide (21.0-32.0) mmol/L Anion Gap (3-11) mmol/L BUN (7-18) mg/dL Creatinine (0.70-1.30) mg/dL Glucose (70-100) mg/dL Lactate (0.6-1.4) mmol/l Calcium (8.5-10.1) mg/dL Total Bilirubin (0.2-1.0) mg/dL AST (15-37) U/L ALT (12-78) U/L Alkaline Phosphatase (46-116) U/L Ammonia (11-32) umol/L Creatine Kinase (39-308) U/L Total Protein (6.4-8.2) g/dL Albumin (3.4-5.0) g/dL TSH (0.358-3.74) uIU/mL Free T4 (0.76-1.46) ng/dL Vital Signs Temperature 93.9 F L 11/11/18 12:55 Temperature Source Skin 11/11/18 11:05 Pulse 70 11/11/18 12:55 Pulse Rhythm Irregular 11/11/18 12:55 Pulse 70 11/11/18 10:47 Respiratory Rate 25 H 11/11/18 12:55 Respiratory Effort Non-Labored 11/11/18 21:10 Respiratory Depth Normal 11/11/18 21:10 Respiratory Pattern Normal 11/11/18 21:10 Blood Pressure 78/45 L 11/11/18 12:55 Blood Pressure Mean 152 11/11/18 10:47 Pulse Oximetry 94 L 11/11/18 12:55 Oxygen Delivery Method Nasal Cannula 11/11/18 12:55 Oxygen Flow Rate 2 11/11/18 12:55 Comment 11/11/18 12:55 Intake & Output 11/11/18 11/11/18 11/12/18 11:59 23:59 11:59 Intake Total 2029 231.6 / 231.6 Output Total 150 / 150 Balance 2029 81.6 / 81.6 Weight 97 lb 0.054 oz 97 lb 0.054 oz Intake: IV 2029 231.6 / 231.6 Output: Urine 150 / 150 Other: Urine Color Dark Linda Urine Appearance Clear Laboratory Results WBC 23.63 k/cumm (4.4-10.8) H 11/11/18 10:50 RBC 1.58 m/cumm (4.50-6.00) L 11/11/18 10:50 Hgb 5.0 g/dL (13.5-17.5) L* 11/11/18 10:50 Hct 16.7 % (40.0-50.0) L* 11/11/18 10:50 MCV 105.7 fL (80-95) H 11/11/18 10:50 MCH 31.6 pg (27.0-33.0) 11/11/18 10:50 MCHC 29.9 g/dL (32.0-36.0) L 11/11/18 10:50 RDW 23.4 % (11.8-14.1) H 11/11/18 10:50 Plt Count 228 x1000/uL (130-400) D 11/11/18 10:50 MPV 10.9 fL (8.0-11.0) 11/11/18 10:50 Immature Gran % See Differential 11/11/18 10:50 Neutrophils % 74.0 11/11/18 10:50 Band Neutrophils % 7.0 % 11/11/18 10:50 Lymphocytes % 3.0 11/11/18 10:50 Monocytes % 9.0 11/11/18 10:50 Eosinophils % 1.0 11/11/18 10:50 Basophils % 0.0 11/11/18 10:50 Metamyelocytes % 1.0 % 11/11/18 10:50 Myelocytes % 4.0 % 11/11/18 10:50 Absolute Neutrophils 19.14 k/cumm (1.2-6.7) H 11/11/18 10:50 Absolute Lymphocytes 0.71 k/cumm (1.2-3.4) L 11/11/18 10:50 Absolute Monocytes 2.13 k/cumm (0.11-0.7) H 11/11/18 10:50 Absolute Eosinophils 0.24 k/cumm (0.0-0.7) 11/11/18 10:50 Absolute Basophils 0.00 k/cumm (0.0-0.2) 11/11/18 10:50 Nucleated RBCs 1 /100WBC 11/11/18 10:50 Differential Comment Manual differential 11/11/18 10:50 RBC Morphology See below 11/11/18 10:50 Polychromasia Present 11/11/18 10:50 Hypochromasia 3+ 11/11/18 10:50 Basophilic Stippling Present 11/11/18 10:50 Anisocytosis 3+ 11/11/18 10:50 Macrocytosis 2+ 11/11/18 10:50 PT 22.9 sec (9.3-11.0) H 11/11/18 10:50 INR 2.3 (0.9-1.1) H 11/11/18 10:50 APTT 31.6 sec (21.0-31.4) H 11/11/18 10:50 VBG pH 7.11 (7.32-7.43) L 11/11/18 10:50 VBG pCO2 33 mm/Hg (34-47) L 11/11/18 10:50 VBG pO2 49 mm/Hg (28-44) H 11/11/18 10:50 VBG HCO3 10 mmol/L (22-28) L 11/11/18 10:50 VBG Total CO2 11 mmol/L (22-29) L 11/11/18 10:50 VBG O2 Saturation 63 % (70-80) L 11/11/18 10:50 VBG Base Excess mmol/L (-3-3) 11/11/18 10:50 Sodium 144 mmol/L (136-145) 11/11/18 10:50 Potassium 5.7 mmol/L (3.5-5.1) H 11/11/18 10:50 Chloride 104 mmol/L (98-107) 11/11/18 10:50 Carbon Dioxide 12.6 mmol/L (21.0-32.0) L 11/11/18 10:50 Anion Gap 27.4 mmol/L (3-11) H 11/11/18 10:50 BUN 76 mg/dL (7-18) H 11/11/18 10:50 Creatinine 2.46 mg/dL (0.70-1.30) H 11/11/18 10:50 Estimated GFR/1.73 m2 27.35 (mL/min/1.73m2) 11/11/18 10:50 Glucose 117 mg/dL (70-100) H 11/11/18 10:50 Lactate 20.0 mmol/l (0.6-1.4) H 11/11/18 10:50 Calcium 8.1 mg/dL (8.5-10.1) L 11/11/18 10:50 Total Bilirubin 3.4 mg/dL (0.2-1.0) H 11/11/18 10:50 AST 1230 U/L (15-37) H 11/11/18 10:50 ALT 190 U/L (12-78) H 11/11/18 10:50 Alkaline Phosphatase 598 U/L (46-116) H 11/11/18 10:50 Ammonia 47 umol/L (11-32) H 11/11/18 10:50 Creatine Kinase 3726 U/L (39-308) H 11/11/18 10:50 Troponin I 0.04 ng/mL (0.00-0.06) 11/11/18 10:50 Total Protein 5.9 g/dL (6.4-8.2) L 11/11/18 10:50 Albumin 2.2 g/dL (3.4-5.0) L 11/11/18 10:50 Lipase 335 U/L (73-393) 11/11/18 10:50 TSH 7.28 uIU/mL (0.358-3.74) H 11/11/18 10:50 Free T4 0.67 ng/dL (0.76-1.46) L 11/11/18 10:50 Ethyl Alcohol < 3.0 mg/dL (<3) 11/11/18 10:50
[2018-11-12] MEDS: Nicotine 21 MG/24 HR PATCH TD (07:59)
--- NOTE | 2018-11-12 11:00 | PDOC.CMIN ---
Care Management Initial Assess REASON FOR HOSPITALIZATION:: Hospice admission for symptom management. 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 PREVIOUS FUNCTIONAL STATUS/SOCIAL/FAMILY SUPPORTS:: He has been living alone in apt in [facility]. He only has one relative, a sister, Darleen. He was admitted to Hospice last Abram 11/08/18, with plan for sister to be primary caregiver, although she did not end up staying with him and left that to a friend, who apparently can't be there all the time. He was found on the floor at home by a friend. CURRENT FUNCTIONAL STATUS:: He is currently comatose. He told MD he did not want to know his prognosis. ADVANCE DIRECTIVES:: COLST completed 11/06/[address] Gardner per her note. Document not on file. Has patient been provided with information about the portal?: No Did the patient sign up for the portal?: No CODE STATUS:: DNR/DNI INSURANCE COVERAGE / FINANCIAL ISSUES:: Hospice thru [facility]. CURRENT HOME/COMMUNITY SERVICES/EQUIPMENT:: Recently admitted to [facility] on 11/08/18. Hospice met with him and sister Darleen. PRIMARY CARE PHYSICIAN:: Cuauhtemoc Sandhu MD POTENTIAL DISCHARGE NEEDS:: He will remain at [facility] on Hospice for symptom management. Cannot be managed at home anymore. Per MD, he is not expected to survive. PATIENT/FAMILY EDUCATION NEEDS:: Review information with sister as needed. 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
--- NOTE | 2018-11-12 13:53 | INITIAL_ITS ---
Care Management Initial Assess REASON FOR HOSPITALIZATION:: Hospice admission for symptom management. 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 PREVIOUS FUNCTIONAL STATUS/SOCIAL/FAMILY SUPPORTS:: He has been living alone in apt in [facility]. He only has one relative, a sister, Darleen. He was admitted to Hospice last Abram 11/08/18, with plan for sister to be primary caregiver, although she did not end up staying with him and left that to a friend, who apparently can't be there all the time. He was found on the floor at home by a friend. CURRENT FUNCTIONAL STATUS:: He is currently comatose. He told MD he did not want to know his prognosis. ADVANCE DIRECTIVES:: COLST completed 11/06/[address] Gardner per her note. Document not on file. Has patient been provided with information about the portal?: No Did the patient sign up for the portal?: No CODE STATUS:: DNR/DNI INSURANCE COVERAGE / FINANCIAL ISSUES:: Hospice thru [facility]. CURRENT HOME/COMMUNITY SERVICES/EQUIPMENT:: Recently admitted to [facility] on 11/08/18. Hospice met with him and sister Darleen. PRIMARY CARE PHYSICIAN:: Cuauhtemoc Sandhu MD POTENTIAL DISCHARGE NEEDS:: He will remain at [facility] on Hospice for symptom management. Cannot be managed at home anymore. Per MD, he is not expected to survive. PATIENT/FAMILY EDUCATION NEEDS:: Review information with sister as needed. 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
--- NOTE | 2018-11-12 14:12 | CHAPLAIN ---
Colin remains on comfort measures. Dr. Gardner's note indicate that she thinks Colin has hours to live, possibly, but unlikely, days. Several family members and friends have been visiting. Colin's sister, Darleen is his agent. His daughter was here yesterday, and his son today. Neither had seen Colin a several weeks and were surprised by his condition. Darleen, Access staff and myself, all worked on contacting the priests yesterday without luck, but Fr. Dong arrived yesterday evening to offer anointing of the sick. Darleen said she is not sure what he's hanging on for. We've all said everything we need to say. But he said he didn't plan on dying this young. I will continue to visit to support Colin and family members through out the day.
--- NOTE | 2018-11-12 18:50 | W.PM.DDS ---
Date of service: 11/12/18 Time of Service: 18:50 Discharge Sum: Prov Provider Primary care physician: Cuauhtemoc Fatima MD - PCP Admitting clinician: Mimi Gardner Attending physician on admission: Mimi Gardner Pronouncing clinician: Mimi Gardner Discharge Sum: Diag Contributing Factors (1) Admission for hospice care: (2) Liver metastases: (3) Gastric mass: Discharge Sum: Summary Date and Time Admission Date: 11/11/1904/27/19 11:57 Date of : 11/12/18 Time of : 14:57 Summary Details: Pt admitted to hospice inpatient for symptom control of pain. He was started on a morphine pump and then transitioned to dilaudid pump with excellent pain control. He peacefully with family surrounding him at 2:57 PM Additional Data Family: at bedside Attending/PCP notified?: Yes Attending Physician: Cuauhtemoc Gardner MD, DC Was code activated?: No Autopsy requested?: No passport application examiner notified?: No Organ bank notified?: No Advance directives: Yes Hospice patient?: Yes
--- NOTE | 2018-11-12 18:55 | EXPE_ITS ---
Date of service: 11/12/18 Time of Service: 18:50 Discharge Sum: Prov Provider Primary care physician: Cuauhtemoc Fatima MD - PCP Admitting clinician: Mimi Gardner Attending physician on admission: Mimi Gardner Pronouncing clinician: Mimi Gardner Discharge Sum: Diag Contributing Factors (1) Admission for hospice care: (2) Liver metastases: (3) Gastric mass: Discharge Sum: Summary Date and Time Admission Date: 11/11/1904/27/19 11:57 Date of : 11/12/18 Time of : 14:57 Summary Details: Pt admitted to hospice inpatient for symptom control of pain. He was started on a morphine pump and then transitioned to dilaudid pump with excellent pain control. He peacefully with family surrounding him at 2:57 PM Additional Data Family: at bedside Attending/PCP notified?: Yes Attending Physician: Cuauhtemoc Gardner MD, DC Was code activated?: No Autopsy requested?: No life claims examiner notified?: No Organ bank notified?: No Advance directives: Yes Hospice patient?: Yes
== END 2018-11-12 14:57 | disposition expired | DRG 948 ==
LOC: ER 12:21 → MS 12:49
PROVIDERS: Admitting Provider Family Medicine; Emergency Provider Student in an Organized Health Care Education/Training Program; PCP Family Medicine; Visit Provider Family Medicine
DX: C78.7 Secondary malignant neoplasm of liver and intrahepatic bile duct (principal); Z51.5 Encounter for palliative care; G89.3 Neoplasm related pain (acute) (chronic); K31.89 Other diseases of stomach and duodenum; J44.9 Chronic obstructive pulmonary disease, unspecified; R18.0 Malignant ascites; D63.0 Anemia in neoplastic disease; Z66 Do not resuscitate
CPT/HCPCS: 36415; 36416; 80053; 82550; 82805; 82962; 83690; 87040; 93005; 96374; 99238; 99285; NC; 70450; 71046; 80320; 82140; 83605; 84439; 84443; 84484; 85025; 85610; 85730; 93010; J1170; J2060; J2270